=== PATIENT | male | born 1940 | race Caucasian/White ===

== ENCOUNTER → 2023-12-23 13:29 | Outpatient (REF) | payer MEDICARE, SELFPAY ==
[2023-12-23 15:38] LABS: Urine Albumin Trace (Neg - Trace); Urine Bilirubin Negative (Negative); Urine Character Clear (Clear); Urine Color Yellow; Urine Glucose 3+ (Negative); Urine Ketone Negative (Negative); Urine Leukocyte Negative (Negative); Urine Nitrite Negative (Negative); Urine Occult Blood Negative (Negative); Urine Specific Gravity 1.005 (<1.030); Urine Urobilinogen Negative (Neg - 1+)
[2023-12-23 15:53] LABS: Blood Urea Nitrogen 32 mg/dl (9-20); Calcium 8.9 mg/dl (8.4-10.2); Carbon Dioxide 23 mmol/L (22-30); Chloride 100 mmol/L (98-107); Glucose 160 mg/dl (70-99); Iron 129 ug/dl (49-181); Sodium 132 mmol/L (135-145); eGFR 36.89
[2023-12-23 15:57] LABS: Urine Sodium 28 mmol/L (30-90)
[2023-12-23 16:03] LABS: Percent Saturation 41 % (20-50); Total Iron Binding Capacity 313 ug/dl (261-462)
== END ==
LOC: HWLAB 13:29
PROVIDERS: ATTENDING PHYSICIAN Internal Medicine
DX: D64.9 Anemia, unspecified (principal); E87.1 Hypo-osmolality and hyponatremia; N18.31 Chronic kidney disease, stage 3a
CPT/HCPCS: 36415; 80048; 81003; 82570; 82728; 83540; 83550; 84300

== ENCOUNTER → 2024-01-10 12:52 | Outpatient (REF) | payer MEDICARE, SELFPAY ==
[2024-01-11 07:55] LABS: Glycohemoglobin (HgbA1c) 5.1 % (4.0-5.6)
== END ==
LOC: HWLAB 12:52
PROVIDERS: ATTENDING PHYSICIAN Internal Medicine
DX: E11.42 Type 2 diabetes mellitus with diabetic polyneuropathy (principal)
CPT/HCPCS: 36415; 83036

== ENCOUNTER 2024-01-23 12:08 | Emergency (ER) | payer MEDICARE, SELFPAY ==
[2024-01-23 12:12] VITALS: BP 195/77
[2024-01-23 12:34] LABS: % Basophils 0.5 % (0-2); % Eosinophils 1.8 % (0-6); % Immature Granulocytes 0.5 % (0-0.5); % Lymphocytes 22.1 % (20.5-51.1); % Monocytes 9.6 % (1.7-9.3); % Neutrophils 65.5 % (42.2-75.2); Absolute Eosinophils 0.2 10^3/uL (0-0.7); Absolute Lymphocytes 1.8 10^3/uL (1.2-3.4); Absolute Monocytes 0.8 10^3/uL (0.1-0.6); Absolute Neutrophils 5.4 10^3/uL (1.4-6.5); Hematocrit 36.3 % (39.0-52.0); Hemoglobin 12.7 g/dL (13.0-18.0); Mean Corpuscular Volume 91.4 fL (80.0-94.0); Mean Platelet Volume 9.8 fL (7.4-10.4); Nucleated Red Blood Cells % 0 % (-); Platelet Count 192 10^3/uL (130-400); Red Blood Cell Count 3.97 10^6/uL (4.70-6.10); Red Cell Dist. Width 16.1 % (11.5-14.5); White Blood Cell Count 8.2 10^3/uL (4.8-10.8)
[2024-01-23 12:43] VITALS: BP 190/68
[2024-01-23 12:50] LABS: ALT (SGPT) 19 U/L (0-50); AST (SGOT) 35 U/L (17-59); Albumin 4.7 g/dl (3.5-5.0); Alkaline Phosphatase 95 U/L (38-126); Blood Urea Nitrogen 28 mg/dl (9-20); Calcium 9.7 mg/dl (8.4-10.2); Carbon Dioxide 17 mmol/L (22-30); Chloride 101 mmol/L (98-107); Glucose 171 mg/dl (70-99); Potassium 4.7 mmol/L (3.5-5.1); Sodium 139 mmol/L (135-145); Total Bilirubin 0.5 mg/dl (0.2-1.3); Total Protein 7.6 g/dl (6.3-8.2); eGFR 45.91
[2024-01-23 12:53] LABS: Troponin I < 0.012 ng/ml
--- NOTE | 2024-01-23 12:57 | ED.GENMED ---
History of Present Illness
General
Chief Complaint: Chest Pain
Source: patient
Exam Limitations: none
Time Seen by Provider: 01/23/24 12:42
History of Present Illness
History of Present Illness:
83-year-old male with history of coronary artery disease status post bypass surgery with history of PAD, hypertension [id number] diabetes presents complaining of onset of chest pain at 8 AM this morning. He was sleeping when it started.
He notes it as a dull ache that seems fairly constant. This was not pleuritic. No associated shortness of breath nausea or diaphoresis. The pain did not radiate. He tried a nitroglycerin this morning as well as Gas-X without significant relief.
At the time my exam he notes the pain to be a 1 out of 10. 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 No abdominal pain.
Past History
Past History
ED Past Medical History: CAD, GERD, HTN, Hypercholesterolemia, NIDDM and Other (Diverticulitis)
ED Past Surgical History: Cardiac
Social History
Tobacco: Non-smoker
Alcohol: Daily
Personal:
Living: with family
Phy Exam
Physical Exam
Physical Exam:
General: Well-appearing male no acute respiratory distress
HEENT: Normocephalic atraumatic
Heart: Regular rate and rhythm no murmurs
Lungs: Clear no wheeze
Abdomen is soft nontender nondistended no guarding or rebound
Extremities: No cyanosis or edema
Skin warm no rash or lesion
Scores
Heart Score for Chest Pain Patients
STEMI patient?: No
History: Slightly or Non-Suspicious
ECG: Normal
Age: >/= 65 years
Risk Factors: >/= 3 Risk Factors or History of CAD
Troponin: </= Normal Limit
Heart Score for Chest Pain Patients: 4
Heart Score Risk: 20.3% MACE over next 6 weeks
Course
Orders/Labs/Results
Orders:
Orders
01/23/24 12:09
ECG [Electrocardiogram (*1)] Urgent
Reason for Study: Chest Pain
EKG- Treatment ONCE
01/23/24 12:21
Complete Blood Count/With Diff Urgent
Comprehensive Metabolic Panel Urgent
Troponin I Urgent
01/23/24 12:56
CR Chest - 2 Views Urgent
Comment:
Reason For Exam: chest pain
01/23/24 14:18
Electrocardiogram (*1) Urgent
Reason for Study: Chest Pain
EKG- Treatment ONCE
01/23/24 14:26
Troponin I Urgent
Abnormal Lab Results
01/23/24
12:21
RBC 3.97 L 10^6/uL
(4.70-6.10)
Hgb 12.7 L g/dL
(13.0-18.0)
Hct 36.3 L %
(39.0-52.0)
MCH 32.0 H pg
(27.0-31.0)
RDW 16.1 H %
(11.5-14.5)
Absolute Monos (auto) 0.8 H 10^3/uL
(0.1-0.6)
Monocytes % 9.6 H %
(1.7-9.3)
Carbon Dioxide 17 L mmol/L
(22-30)
BUN 28 H mg/dl
(9-20)
Creatinine 1.5 H mg/dL
(0.7-1.3)
Glucose 171 H mg/dl
(70-99)
01/23/24 12:21
01/23/24 12:21
Vital Signs
Initial and Last Documented VS:
Initial Vital Signs
Temp Pulse Resp BP Pulse Ox
97.9 F 67 18 195/77 99
01/23/24 12:12 01/23/24 12:12 01/23/24 12:12 01/23/24 12:12 01/23/24 12:12
Last Documented Vital Signs
Temp Pulse Resp BP Pulse Ox
97.9 F 60 13 151/70 99
01/23/24 12:12 01/23/24 14:15 01/23/24 14:15 01/23/24 14:12 01/23/24 14:15
MDM/Problems Addressed
Differential Diagnosis Includes:
Chest pain. Consider ACS PE dissection pneumothorax. Patient's pain is improving now down to a 1. Vital signs are stable. Chest x-ray pending labs pending EKG shows sinus rhythm without ischemic changes
*Critical Care Note
Total Time (30-74mins, 75-104mins- exclusive of procedures): Not Applicable
Update Note
Update Note:
Initial and repeat troponins undetectable. Patient is chest pain-free chest x-ray is clear workup here otherwise negative. Recommend follow-up with log pond worker. Return precautions were given
ED Attending Note
-
Portions of this chart may have been created with voice recognition software.� Occasional wrong word or��sound alike� substitutions may have occurred due to the inherent limitations of voice recognition software.
Discharge Plan
Departure
Patient Disposition: Home (Routine Discharge)
Date of Disposition: 01/23/24
Time of Disposition: 15:06
Patient with high blood pressure during this ER visit?: No
Discharge Problem:
Chest pain
Instructions: Chest Pain DCA Follow Up
Prescriptions:
No Action
methylcellulose (laxative) 1 PACKET powder in packet
1 packet PO DAILY
paroxetine HCl 10 MG tablet
10 mg PO HS
cetirizine 10 MG tablet
10 mg PO DAILYPRN PRN (Reason: allergies)
aspirin 81 MG tablet,delayed release (DR/EC)
81 mg PO DAILY
metformin 1,000 MG tablet
1,000 mg PO BID
omeprazole 20 MG capsule,delayed release(DR/EC)
20 mg PO DAILY
metoprolol tartrate 25 MG tablet
25 mg PO BID
multivitamin with folic acid [Tab-A-Ondina] 1 TABLET tablet
1 tab PO DAILY
icosapent ethyl [Vascepa] 1 GM capsule
2 gm PO BID
atorvastatin [Lipitor] 20 MG tablet
20 mg PO DAILY Qty: 30 0RF
lisinopril 20 MG tablet
20 mg PO DAILY Qty: 30 0RF
Referrals:
Rickie Guzman MD [Family Provider] -
Activity Restrictions/Additional Instructions:
Please continue current medication regimen. Return here for worsening symptoms. The cardiology office should be calling you to set a sooner follow-up.
Interventions
Interventions:
*Risk Screen - Suicide Last Done: 01/23/24 13:24
*General Assessment Last Done: 01/23/24 13:24
*Neglect/Abuse Screening Last Done: 01/23/24 13:24
ED- Fall Risk Assessment Last Done: 01/23/24 13:24
*ED COVID-19 Vaccine History Last Done: 01/23/24 13:24
ED- Cardiac Assessment Last Done: 01/23/24 13:30
Discharge Date and Time
Print Language: BHUTANESE
[2024-01-23 13:00] VITALS: BP 165/59
[2024-01-23 13:24] VITALS: BMI 27.7
[2024-01-23 14:12] VITALS: BP 151/70
[2024-01-23 15:00] VITALS: BP 174/65
[2024-01-23 15:02] LABS: Troponin I < 0.012 ng/ml
== END 2024-01-23 15:17 | disposition home or self-care (01) ==
LOC: EMR 12:08
PROVIDERS: Emergency Medicine; Physician Assistant; EMERGENCY PHYSICIAN Student in an Organized Health Care Education/Training Program; FAMILY PHYSICIAN Internal Medicine
DX: R07.89 Other chest pain (principal); I25.10 Atherosclerotic heart disease of native coronary artery without angina pectoris; I73.9 Peripheral vascular disease, unspecified; I10 Essential (primary) hypertension; E11.9 Type 2 diabetes mellitus without complications; K57.92 Diverticulitis of intestine, part unspecified, without perforation or abscess without bleeding; K21.9 Gastro-esophageal reflux disease without esophagitis; E78.00 Pure hypercholesterolemia, unspecified; Z95.1 Presence of aortocoronary bypass graft; Z79.82 Long term (current) use of aspirin; Z79.84 Long term (current) use of oral hypoglycemic drugs
CPT/HCPCS: 99284; 71046; 80053; 84484; 85025; 93005

== ENCOUNTER → 2024-04-03 10:09 | Outpatient (REF) | payer MEDICARE, SELFPAY ==
[2024-04-03 12:48] LABS: HDL Cholesterol 31 mg/dl; LDL Cholesterol, Calculated 74 mg/dl; Total Cholesterol 145 mg/dl (50-199); Triglyceride 203 mg/dl (10-149); Very Low Density Lipoprotein 40 mg/dl (0-30)
[2024-04-03 13:11] LABS: PSA, Total - Screen 0.96 ng/ml (0.0-4.0)
[2024-04-03 14:43] LABS: Glycohemoglobin (HgbA1c) 6.4 % (4.0-5.6)
== END ==
LOC: HWLAB 10:09
PROVIDERS: ATTENDING PHYSICIAN Internal Medicine
DX: E11.42 Type 2 diabetes mellitus with diabetic polyneuropathy (principal); Z12.5 Encounter for screening for malignant neoplasm of prostate
CPT/HCPCS: 36415; 80061; 83036; G0103

== ENCOUNTER 2024-06-26 15:18 | Emergency (ER) | payer SELFPAY ==
[2024-06-26 15:24] VITALS: BP 160/74
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
[2024-06-26 18:25] VITALS: BP 121/84
== END 2024-06-26 18:38 | disposition home or self-care (01) ==
LOC: EMR 15:18
PROVIDERS: EMERGENCY PHYSICIAN Student in an Organized Health Care Education/Training Program; FAMILY PHYSICIAN Internal Medicine
DX: Z04.1 Encounter for examination and observation following transport accident (principal); V47.5XXA Car driver injured in collision with fixed or stationary object in traffic accident, initial encounter; I25.10 Atherosclerotic heart disease of native coronary artery without angina pectoris; I10 Essential (primary) hypertension; E78.00 Pure hypercholesterolemia, unspecified; E11.9 Type 2 diabetes mellitus without complications; K21.9 Gastro-esophageal reflux disease without esophagitis; Z79.82 Long term (current) use of aspirin
CPT/HCPCS: 99282

== ENCOUNTER → 2024-09-26 10:18 | Outpatient (REF) | payer MEDICARE, SELFPAY ==
[2024-09-26 12:22] LABS: % Basophils 0.4 % (0-2); % Eosinophils 1.8 % (0-6); % Immature Granulocytes 0.4 % (0-0.5); % Neutrophils 63.4 % (42.2-75.2); Absolute Eosinophils 0.1 10^3/uL (0-0.7); Absolute Lymphocytes 1.1 10^3/uL (1.2-3.4); Absolute Monocytes 0.6 10^3/uL (0.1-0.6); Absolute Neutrophils 3.2 10^3/uL (1.4-6.5); Hematocrit 33.4 % (39.0-52.0); Hemoglobin 11.4 g/dL (13.0-18.0); Mean Corp Hgb Conc. 34.1 g/dL (33.0-37.0); Mean Corpuscular Hgb 31.8 pg (27.0-31.0); Mean Platelet Volume 10.8 fL (7.4-10.4); Nucleated Red Blood Cells % 0 % (-); Platelet Count 212 10^3/uL (130-400); Red Blood Cell Count 3.59 10^6/uL (4.70-6.10); Red Cell Dist. Width 12.5 % (11.5-14.5); White Blood Cell Count 5.1 10^3/uL (4.8-10.8)
[2024-09-26 12:45] LABS: ALT (SGPT) 13 U/L (0-50); AST (SGOT) 23 U/L (17-59); Albumin 4.5 g/dl (3.5-5.0); Alkaline Phosphatase 68 U/L (38-126); Blood Urea Nitrogen 41 mg/dl (9-20); Calcium 9.2 mg/dl (8.4-10.2); Carbon Dioxide 23 mmol/L (22-30); Chloride 106 mmol/L (98-107); Glucose 123 mg/dl (70-99); Potassium 5.5 mmol/L (3.5-5.1); Sodium 141 mmol/L (135-145); Total Bilirubin 0.5 mg/dl (0.2-1.3); Total Protein 6.9 g/dl (6.3-8.2); eGFR 24.72
[2024-09-27 12:12] LABS: Lyme Antibody Screen, EIA Presump. Positive (Negative)
== END ==
LOC: HWLAB 10:18
DX: R53.83 Other fatigue (principal)
CPT/HCPCS: 36415; 80053; 85025; 86617; 86618

== ENCOUNTER → 2024-10-03 15:07 | Outpatient (REF) | payer MEDICARE, SELFPAY | LOC: HWRCS 15:07 | PROVIDERS: ATTENDING PHYSICIAN Internal Medicine Cardiovascular Disease; FAMILY PHYSICIAN Internal Medicine | DX: R01.1 Cardiac murmur, unspecified (principal) | CPT/HCPCS: 93306 ==

== ENCOUNTER → 2024-10-17 11:26 | Outpatient (REF) | payer MEDICARE, SELFPAY ==
[2024-10-17 16:01] LABS: % Basophils 0.5 % (0-2); % Eosinophils 3.7 % (0-6); % Immature Granulocytes 0.3 % (0-0.5); % Lymphocytes 20.4 % (20.5-51.1); % Monocytes 10.8 % (1.7-9.3); % Neutrophils 64.3 % (42.2-75.2); Absolute Eosinophils 0.2 10^3/uL (0-0.7); Absolute Lymphocytes 1.2 10^3/uL (1.2-3.4); Absolute Monocytes 0.6 10^3/uL (0.1-0.6); Absolute Neutrophils 3.7 10^3/uL (1.4-6.5); Mean Corp Hgb Conc. 33.3 g/dL (33.0-37.0); Mean Corpuscular Hgb 31.7 pg (27.0-31.0); Mean Corpuscular Volume 95.1 fL (80.0-94.0); Mean Platelet Volume 11.1 fL (7.4-10.4); Nucleated Red Blood Cells % 0 % (-); Platelet Count 214 10^3/uL (130-400); Red Blood Cell Count 3.47 10^6/uL (4.70-6.10); Red Cell Dist. Width 13.3 % (11.5-14.5); White Blood Cell Count 5.7 10^3/uL (4.8-10.8)
[2024-10-17 16:12] LABS: Albumin 4.1 g/dl (3.5-5.0); Blood Urea Nitrogen 34 mg/dl (9-20); Carbon Dioxide 20 mmol/L (22-30); Chloride 107 mmol/L (98-107); Glucose 157 mg/dl (70-99); Phosphorus 4.4 mg/dl (2.5-4.5); Potassium 4.8 mmol/L (3.5-5.1); Sodium 138 mmol/L (135-145); eGFR 28.81
== END ==
LOC: HWLAB 11:26
DX: R94.4 Abnormal results of kidney function studies (principal)
CPT/HCPCS: 36415; 80069; 85025

== ENCOUNTER → 2025-01-18 10:56 | Outpatient (REF) | payer MEDICARE, SELFPAY ==
[2025-01-21 04:53] LABS: ANA, IgG Reflex to HEp-2 None Detected (None Detected)
== END ==
LOC: HWRAD 10:56
PROVIDERS: ATTENDING PHYSICIAN Specialist; FAMILY PHYSICIAN Internal Medicine
DX: N18.4 Chronic kidney disease, stage 4 (severe) (principal); R80.1 Persistent proteinuria, unspecified
CPT/HCPCS: 36415; 76770; 83516; 86038; 86160; 86255

== ENCOUNTER → 2025-02-05 12:13 | Outpatient (REF) | payer MEDICARE, SELFPAY ==
[2025-02-05 17:31] LABS: Hematocrit 32.6 % (39.0-52.0); Hemoglobin 10.9 g/dL (13.0-18.0)
[2025-02-05 17:50] LABS: Calcium 9.1 mg/dl (8.4-10.2); Iron 86 ug/dl (49-181); Uric Acid 8.7 mg/dl (3.5-8.5)
[2025-02-05 17:59] LABS: Total Iron Binding Capacity 332 ug/dl (261-462)
[2025-02-06 10:45] LABS: Blood Urea Nitrogen 43 mg/dl (9-20); Carbon Dioxide 18 mmol/L (22-30); Chloride 106 mmol/L (98-107); Glucose 137 mg/dl (70-99); Potassium 5.0 mmol/L (3.5-5.1); Sodium 134 mmol/L (135-145); eGFR 24.72
== END ==
LOC: HWLAB 12:13
PROVIDERS: ATTENDING PHYSICIAN Specialist
DX: N18.4 Chronic kidney disease, stage 4 (severe) (principal); D64.9 Anemia, unspecified; R80.1 Persistent proteinuria, unspecified
CPT/HCPCS: 36415; 80048; 82570; 82668; 83516; 83520; 83540; 83550; 83970; 84155; 84156; 84165; 84550; 85014; 85018; 86038; 86160; 86255; 86335

== ENCOUNTER → 2025-02-27 12:46 | Outpatient (REF) | payer MEDICARE, SELFPAY ==
[2025-02-28 08:28] LABS: Glycohemoglobin (HgbA1c) 6.0 % (4.0-5.6)
== END ==
LOC: HWLAB 12:46
PROVIDERS: ATTENDING PHYSICIAN Internal Medicine
DX: E11.9 Type 2 diabetes mellitus without complications (principal)
CPT/HCPCS: 36415; 83036

== ENCOUNTER 2025-03-29 13:40 | Emergency (ER) | payer MEDICARE, SELFPAY ==
[2025-03-29 13:41] VITALS: BP 135/59
[2025-03-29 14:28] LABS: Hematocrit 34.3 % (39.0-52.0); Hemoglobin 11.4 g/dL (13.0-18.0); Mean Corp Hgb Conc. 33.2 g/dL (33.0-37.0); Mean Corpuscular Volume 93.7 fL (80.0-94.0); Nucleated Red Blood Cells % 0 % (-); Platelet Count 241 10^3/uL (130-400); Red Cell Dist. Width 13.1 % (11.5-14.5)
[2025-03-29 14:51] LABS: ALT (SGPT) 15 U/L (0-50); AST (SGOT) 24 U/L (17-59); Albumin 4.5 g/dl (3.5-5.0); Alkaline Phosphatase 94 U/L (38-126); Blood Urea Nitrogen 28 mg/dl (9-20); Calcium 9.4 mg/dl (8.4-10.2); Carbon Dioxide 21 mmol/L (22-30); Chloride 101 mmol/L (98-107); Glucose 165 mg/dl (70-99); Potassium 5.8 mmol/L (3.5-5.1); Sodium 132 mmol/L (135-145); Total Protein 7.6 g/dl (6.3-8.2); eGFR 25.96
[2025-03-29 15:03] LABS: Troponin I 0.015 ng/ml
--- NOTE | 2025-03-29 17:45 | ED.GENMED ---
History of Present Illness
<Leslie Castillo EXTRACT OPERATOR - Last Filed: 03/29/25 22:34>
General
Chief Complaint: Dizziness
Source: patient
Exam Limitations: none
Time Seen by Provider: 03/29/25 17:26
Nursing documentation reviewed up to this point in time: agreed with
History of Present Illness
History of Present Illness:
84-year-old male with history of HTN, HLD, recently diagnosed with stage IV CKD followed by Dr. Sauceda who he saw last week and stopped his HCTZ due to low blood pressures. Patient states he has been having episodes where he feels weak, when he
stands up he is afraid to walk because of his neuropathy and weakness in the legs. He states over the past few months he has had intermittent episodes of feeling weak, dizzy and feels like 'a sensation' in his chest goes up to his head 'I feel like
I am going to fall, I get dizzy, it feels like my heart is in my throat.' This evening he had that same feeling and told his partner: 'I think this is it.' Had the most significant episode about 3 hours ago at home when a 'fluttering feeling from
my chest moved up to my throat and head and I felt like I was going to either throw up or faint.'
He stood to go to BR, felt dizzy, sat back down and it passed. Went and had BM afterwards.
Since being diagnosed with CKD, he has been checking his blood pressure at least 3 times a day, has been on the Internet and googling things and he does admit that he gets especially anxious about his blood pressure, as it has been low '94/46'
earlier.
He states Dr. Sauceda is aware of these episodes. His next appointment is in one month. He was to have repeat labs prior to that visit.
Past History
<Leslie Castillo EXTRACT OPERATOR - Last Filed: 03/29/25 22:34>
Past History
ED Past Medical History: CAD, GERD, HTN, Hypercholesterolemia, NIDDM and Other (Diverticulitis)
ED Past Surgical History: Cardiac
Social History
Tobacco: Non-smoker
Alcohol: Daily
Personal:
Living: with family
Review of Systems
<Leslie Castillo, EXTRACT OPERATOR - Last Filed: 03/29/25 22:34>
Review of Systems
Allergies reviewed?: Yes
All Other Systems: ROS reviewed and negative except as documented in HPI and ROS
Phy Exam
<Leslie Castillo, EXTRACT OPERATOR - Last Filed: 03/29/25 22:34>
Physical Exam
Physical Exam:
GENERAL: No acute distress. A&Ox3.
CONSTITUTIONAL: Afebrile.
EYES: clear, conjunctivae normal
ENMT: moist mucus membranes, Pharynx nl
RESPIRATORY: Regular respirations, nonlabored, lungs clear.
CARDIOVASCULAR: Regular rate and rhythm, no murmurs, no rubs.
GI: Soft, nontender, normal BS
MUSCULOSKELETAL: Moves with ease. Well perfused. No edema
SKIN: Warm, dry, pink
PSYCH: Mildly anxious, pleasant mood and affect. Well kept, interactive and appropriate
NEUROLOGIC: Awake, alert and oriented. No focal neurological deficits
Course
<Leslie Castillo, EXTRACT OPERATOR - Last Filed: 03/29/25 22:34>
Orders/Labs/Results
Orders:
Orders
03/29/25 13:43
Electrocardiogram (*1) Urgent
Reason for Study: Vertigo / Dizzy
EKG- Treatment ONCE
03/29/25 14:09
Complete Blood Count/With Diff Urgent
Comprehensive Metabolic Panel Urgent
Troponin I Urgent
03/29/25 18:56
Sodium Zirconium Cyclosilicate [Lokelma] 10 gram PO NOW STA
03/29/25 19:13
0.9% Sodium Chloride 500 ml [Nss] 500 ml IV BOLUS
Abnormal Lab Results
03/29/25
14:09
RBC 3.66 L 10^6/uL
(4.70-6.10)
Hgb 11.4 L g/dL
(13.0-18.0)
Hct 34.3 L %
(39.0-52.0)
MCH 31.1 H pg
(27.0-31.0)
Absolute Monos (auto) 0.9 H 10^3/uL
(0.1-0.6)
Lymphocytes % 18.5 L %
(20.5-51.1)
Monocytes % 10.6 H %
(1.7-9.3)
Sodium 132 L mmol/L
(135-145)
Potassium 5.8 H mmol/L
(3.5-5.1)
Carbon Dioxide 21 L mmol/L
(22-30)
BUN 28 H mg/dl
(9-20)
Creatinine 2.4 H mg/dL
(0.7-1.3)
Glucose 165 H mg/dl
(70-99)
03/29/25 14:09
03/29/25 14:09
Vital Signs
Initial and Last Documented VS:
Initial Vital Signs
Temp Pulse Resp BP Pulse Ox
97.4 F 55 16 135/59 97
03/29/25 13:41 03/29/25 13:41 03/29/25 13:41 03/29/25 13:41 03/29/25 13:41
Last Documented Vital Signs
Temp Pulse Resp BP Pulse Ox
97.4 F 70 20 151/64 97
03/29/25 13:41 03/29/25 17:57 03/29/25 17:54 03/29/25 17:54 03/29/25 17:52
Visual Education Teacher consulted with Physician
Visual Education Teacher consulted with physician?: Yes
Name of Physician Consulted: Di
<Deep Franklin, DO - Last Filed: 03/29/25 23:37>
Orders/Labs/Results
Orders:
Orders
03/29/25 13:43
Electrocardiogram (*1) Urgent
Reason for Study: Vertigo / Dizzy
EKG- Treatment ONCE
03/29/25 14:09
Complete Blood Count/With Diff Urgent
Comprehensive Metabolic Panel Urgent
Troponin I Urgent
03/29/25 18:56
Sodium Zirconium Cyclosilicate [Lokelma] 10 gram PO NOW STA
03/29/25 19:13
0.9% Sodium Chloride 500 ml [Nss] 500 ml IV BOLUS
Abnormal Lab Results
03/29/25
14:09
RBC 3.66 L 10^6/uL
(4.70-6.10)
Hgb 11.4 L g/dL
(13.0-18.0)
Hct 34.3 L %
(39.0-52.0)
MCH 31.1 H pg
(27.0-31.0)
Absolute Monos (auto) 0.9 H 10^3/uL
(0.1-0.6)
Lymphocytes % 18.5 L %
(20.5-51.1)
Monocytes % 10.6 H %
(1.7-9.3)
Sodium 132 L mmol/L
(135-145)
Potassium 5.8 H mmol/L
(3.5-5.1)
Carbon Dioxide 21 L mmol/L
(22-30)
BUN 28 H mg/dl
(9-20)
Creatinine 2.4 H mg/dL
(0.7-1.3)
Glucose 165 H mg/dl
(70-99)
03/29/25 14:09
03/29/25 14:09
Vital Signs
Initial and Last Documented VS:
Initial Vital Signs
Temp Pulse Resp BP Pulse Ox
97.4 F 55 16 135/59 97
03/29/25 13:41 03/29/25 13:41 03/29/25 13:41 03/29/25 13:41 03/29/25 13:41
Last Documented Vital Signs
Temp Pulse Resp BP Pulse Ox
97.4 F 70 20 151/64 97
03/29/25 13:41 03/29/25 17:57 03/29/25 17:54 03/29/25 17:54 03/29/25 17:52
<Leslie Castillo NP - Last Filed: 03/29/25 22:34>
MDM/Problems Addressed
Differential Diagnosis Includes:
Orthostatic hypotension, ACS, DE, cardiac arrhythmia ,GERD, anxiety related dizziness, dehydration
MDM/Problems Addressed:
84-year-old male with history of HTN, HLD, CAD, Beltran's esophagus, diverticulitis, GERD, recently diagnosed with stage IV CKD followed by Dr. Sauceda who he saw last week and stopped his HCTZ due to low blood pressures. Patient states he has been
having episodes where he feels weak, when he stands up he is afraid to walk because of his neuropathy and weakness in the legs. He states over the past few months he has had intermittent episodes of feeling weak, dizzy and feels like 'a sensation'
in his chest goes up to his head 'I feel like I am going to fall, I get dizzy, it feels like my heart is in my throat.' This evening he had that same feeling and told his partner: 'I think this is it.' Had the most significant episode about 3
hours ago at home when a 'fluttering feeling from my chest moved up to my throat and head and I felt like I was going to either throw up or faint.'
He stood to go to BR, felt dizzy, sat back down and it passed. Went and had BM afterwards.
Since being diagnosed with CKD, he has been checking his blood pressure at least 3 times a day, has been on the Internet and googling things and he does admit that he gets especially anxious about his blood pressure, as it has been low '94/46'
earlier.
He states Dr. Sauceda is aware of these episodes. His next appointment is in one month. He was to have repeat labs prior to that visit.
EKG: Sinus bradycardia heart rate 57
Orthostatics negative
CBC: No clinically significant abnormality
CMP: Potassium 5.8, BUN/creat 28/2.4 GFR 25.96
Lokelma given
BUN/creat ratio 11.67. IV fluids ordered
Consulted nephrology Dr. Kidd who agrees, stop Lisinopril due to high K+, restart the HCTZ 12.5 mg daily
Pt will have repeat labs on Tuesday (2 days) He will notify Dr. Sauceda of today's visit.
Pt feels much better after IVFs. He is comfortable going home with his partner.
Partner came to desk and asks if this could be anxiety as pt has history of panic attacks and anxiety and he's been on the internet about HTN and kidney disease and has been anxious about his health
<Leslie Castillo EXTRACT OPERATOR - Last Filed: 03/29/25 22:34>
*Pulse Oximetry
SaO2: 97
Oxygen Mode of Delivery: Room air
Patient hypoxic: no
*EKG
EKG Intrepretation Date: 03/29/25
Interpretation: abnormal
Heart Rate: 57
Rate: bradycardiac
Rhythm: sinus
[place]: normal axis
Interval: normal interval
QRS Pattern: normal QRS
Ischemia: no ischemia
*Critical Care Note
Total Time (30-74mins, 75-104mins- exclusive of procedures): Not Applicable
ED Attending Note
<Leslie Castillo EXTRACT OPERATOR - Last Filed: 03/29/25 22:34>
-
Portions of this chart may have been created with voice recognition software.� Occasional wrong word or��sound alike� substitutions may have occurred due to the inherent limitations of voice recognition software.
<eDep Franklin DO - Last Filed: 03/29/25 23:37>
ED Attending Note
I performed the substantive portion of visit, reviewed & personally made and approve the management plan that is documented in note by myself or LETTY.: Yes
Discharge Plan
Departure
Patient Disposition: Home (Routine Discharge)
Date of Disposition: 03/29/25
Time of Disposition: 20:19
Patient with high blood pressure during this ER visit?: No
Condition: Good
Discharge Problem:
Acute hyperkalemia, CKD (chronic kidney disease), Atypical chest pain, Mild dehydration
Instructions: Chest pain, Hyperkalemia, Dehydration in adults - ED (DC)
Prescriptions:
No Action
methylcellulose (laxative) 1 PACKET powder in packet
1 packet PO DAILY
paroxetine HCl 10 MG tablet
10 mg PO HS
cetirizine 10 MG tablet
10 mg PO DAILYPRN PRN (Reason: allergies)
aspirin 81 MG tablet,delayed release (DR/EC)
81 mg PO DAILY
metformin 1,000 MG tablet
1,000 mg PO BID
omeprazole 20 MG capsule,delayed release(DR/EC)
20 mg PO DAILY
metoprolol tartrate 25 MG tablet
25 mg PO BID
multivitamin with folic acid [Tab-A-Ondina] 1 TABLET tablet
1 tab PO DAILY
icosapent ethyl [Vascepa] 1 GM capsule
2 gm PO BID
atorvastatin [Lipitor] 20 MG tablet
20 mg PO DAILY Qty: 30 0RF
lisinopril 20 MG tablet
20 mg PO DAILY Qty: 30 0RF
Referrals:
Rickie Guzman MD [Family Provider, Internal Medicine]
Valentine Sauceda MD [Active, Nephrology] - Follow up in 2-3 days
Activity Restrictions/Additional Instructions:
As we discussed, nothing worrisome in your workup here today.
Send your potassium was a little high, stop the Lisinopril
For your blood pressure that is a little high, restart the hydrochlorothiazide at 12.[address] Sauceda on Tuesday and inform of today's visit.
Have the blood work done on Tuesday that Dr. Sauceda has ordered. They will recheck your potassium at that time
Take you blood pressure every late morning under calm circumstances and record it daily for 2 weeks, then discuss results with Dr. Sauceda at your next visit.
Interventions
Interventions:
*Risk Screen - Suicide Last Done: 03/29/25 13:43
*General Assessment Last Done: 03/29/25 17:57
*Neglect/Abuse Screening Last Done: 03/29/25 13:43
*ED- Fall Risk Assessment Last Done: 03/29/25 17:57
*ED COVID-19 Vaccine History Last Done: 03/29/25 17:57
*ED Influenza Vaccine History Last Done: 03/29/25 17:57
*Nursing Disposition Last Done: 03/29/25 20:33
ED- Neurological Assessment Last Done: 03/29/25 17:57
ED- Cardiac Assessment Last Done: 03/29/25 20:33
ED Swallowing Screen Last Done: 03/29/25 19:05
Discharge Date and Time
Discharge Date/Time: 03/29/25 20:35
Print Language: IRISH
[2025-03-29 17:50] VITALS: BP 154/64
[2025-03-29 17:52] VITALS: BP 151/64; BP 154/64; BP 158/71; PULSE 70; PULSE 72; PULSE 73
[2025-03-29 17:54] VITALS: BP 151/64
[2025-03-29] MEDS: LOKELMA 10 GRAM PO (19:11)
[2025-03-29] MEDS: NSS 500 IV (19:16)
== END 2025-03-29 20:35 | disposition home or self-care (01) ==
LOC: EMR 13:40
PROVIDERS: Emergency Medicine; EMERGENCY PHYSICIAN Emergency Medicine; FAMILY PHYSICIAN Internal Medicine
DX: E87.5 Hyperkalemia (principal); I12.9 Hypertensive chronic kidney disease with stage 1 through stage 4 chronic kidney disease, or unspecified chronic kidney disease; E11.22 Type 2 diabetes mellitus with diabetic chronic kidney disease; N18.4 Chronic kidney disease, stage 4 (severe); E11.40 Type 2 diabetes mellitus with diabetic neuropathy, unspecified; E78.00 Pure hypercholesterolemia, unspecified; R07.89 Other chest pain; E86.0 Dehydration; I25.10 Atherosclerotic heart disease of native coronary artery without angina pectoris; Z79.899 Other long term (current) drug therapy; Z87.19 Personal history of other diseases of the digestive system
CPT/HCPCS: 99283; 96360; 80053; 84484; 85025; 93005

== ENCOUNTER → 2025-04-01 13:04 | Outpatient (REF) | payer MEDICARE, SELFPAY ==
[2025-04-01 16:44] LABS: Albumin 4.4 g/dl (3.5-5.0); Blood Urea Nitrogen 23 mg/dl (9-20); Calcium 9.3 mg/dl (8.4-10.2); Carbon Dioxide 23 mmol/L (22-30); Chloride 98 mmol/L (98-107); Glucose 195 mg/dl (70-99); Potassium 5.3 mmol/L (3.5-5.1); Sodium 130 mmol/L (135-145); eGFR 30.47
== END ==
LOC: HWLAB 13:04
PROVIDERS: ATTENDING PHYSICIAN Specialist; FAMILY PHYSICIAN Internal Medicine
DX: N18.4 Chronic kidney disease, stage 4 (severe) (principal)
CPT/HCPCS: 36415; 80069; 82570; 84156

== ENCOUNTER → 2025-04-05 13:12 | Outpatient (REF) | payer MEDICARE, SELFPAY ==
[2025-04-05 15:34] LABS: Blood Urea Nitrogen 39 mg/dl (9-20); Calcium 9.2 mg/dl (8.4-10.2); Carbon Dioxide 23 mmol/L (22-30); Chloride 103 mmol/L (98-107); Glucose 195 mg/dl (70-99); Potassium 4.5 mmol/L (3.5-5.1); Sodium 139 mmol/L (135-145); eGFR 27.32
== END ==
LOC: HWLAB 13:12
PROVIDERS: ATTENDING PHYSICIAN Specialist; FAMILY PHYSICIAN Internal Medicine
DX: I10 Essential (primary) hypertension (principal); N18.31 Chronic kidney disease, stage 3a
CPT/HCPCS: 36415; 80048

== ENCOUNTER → 2025-04-24 12:38 | Outpatient (REF) | payer MEDICARE, SELFPAY ==
[2025-04-24 16:31] LABS: Blood Urea Nitrogen 27 mg/dl (9-20); Calcium 9.1 mg/dl (8.4-10.2); Carbon Dioxide 19 mmol/L (22-30); Chloride 106 mmol/L (98-107); Glucose 201 mg/dl (70-99); Potassium 4.2 mmol/L (3.5-5.1); Sodium 138 mmol/L (135-145); eGFR 30.47
== END ==
LOC: REG 12:38
PROVIDERS: ATTENDING PHYSICIAN Specialist; FAMILY PHYSICIAN Internal Medicine
DX: I10 Essential (primary) hypertension (principal); E78.2 Mixed hyperlipidemia; N18.4 Chronic kidney disease, stage 4 (severe)
CPT/HCPCS: 36415; 80048